=== PATIENT | female | born 1940 | race Hispanic/Latino ===

== ENCOUNTER 2018-03-07 10:22 | Emergency (ER) | payer MEDICARE, BC ==
[2018-03-07 10:22] VITALS: BMI 156.3
[2018-03-07 11:40] LABS: BASO % 0.6 % (0.0-2.0); EOS # 0.3 K/uL (0.0-0.7); EOS % 3.9 % (0.0-4.0); HEMOGLOBIN 11.9 g/dL (11.0-16.0); LYMPH # 1.9 K/uL (1.0-4.3); LYMPH % 29.3 % (20.0-40.0); MEAN CELL VOLUME 89.8 fL (81.0-99.0); MEAN CORPUSCULAR HEMOGLOBIN 31.3 pg (27.0-31.0); MEAN CORPUSCULAR HGB CONC 34.9 g/dL (33.0-37.0); MEAN PLATELET VOLUME 6.2 fL (7.2-11.7); MONO # 0.5 K/uL (0.0-0.8); MONO % 8.3 % (0.0-10.0); NEUT # 3.8 K/uL (1.8-7.0); NEUT % 57.9 % (50.0-75.0); RBC 3.81 Mil/uL (3.80-5.20); RED CELL DISTRIBUTION WIDTH 13.8 % (11.5-14.5); WHITE BLOOD COUNT 6.5 K/uL (4.8-10.8)
[2018-03-07 11:47] LABS: SQUAMOUS EPITHIAL 4 /hpf (0-5); URINE BACTERIA FEW (<OCC); URINE BILIRUBIN NEGATIVE (NEGATIVE); URINE BLOOD 2+ (NEGATIVE); URINE CLARITY Hazy (Clear); URINE COLOR Yellow (YELLOW); URINE GLUCOSE (UA) NORMAL (Normal); URINE LEUKOCYTE ESTERASE 3+ Leu/uL (Negative); URINE PROTEIN NEGATIVE (NEGATIVE); URINE UROBILINOGEN NORMAL mg/dL (0.2-1.0)
[2018-03-07 12:01] LABS: ALB/GLOB RATIO 1.1 (1.0-2.1); ALBUMIN 3.7 g/dL (3.5-5.0); ALT/SGPT 20 U/L (9-52); AST/SGOT 25 U/L (14-36); BLOOD UREA NITROGEN 13 mg/dL (7-17); CALCIUM 8.2 mg/dl (8.6-10.4); GFR AFRICAN-AMERICAN > 60; GFR NON-AFRICAN AMERICAN > 60
[2018-03-07 12:14] LABS: B-TYPE NATRIURETIC PEPTIDE 99.9 pg/mL (0-900)
[2018-03-07 12:37] VITALS: RESP 18; O2SAT 98
--- NOTE | 2018-03-07 12:44 | C.PDOC ---
History Of Present Illness [id number] female complaints of bilateral lower extremity swelling that began 1 week ago. Denies chest pain, SOB, any trauma, or injury. Patient states she has Hx of spina bifida. Patient states she normally catheterizes herself and is currently requesting full catheterization as well. Patient states she completed course of biaxin for sinusitis and feels it contributed to the leg swelling. Time Seen by Provider: 03/07/18 10:36 Chief Complaint (Nursing): Lower Extremity Problem/Injury History Per: Patient History/Exam Limitations: no limitations Onset/Duration Of Symptoms: Hrs Current Symptoms Are (Timing): Still Present Recent travel outside of the [place]: No Past Medical History Reviewed: Historical Data, Nursing Documentation, Vital Signs Vital Signs: Last Vital Signs Temp 98.7 F 03/07/18 12:36 Pulse 62 03/07/18 12:36 Resp 18 03/07/18 12:36 BP 161/74 H 03/07/18 12:36 Pulse Ox 98 03/07/18 13:40 - Medical History PMH: Back Problems (born w/spina bifida), HTN, Chronic Kidney Disease - [facility] Procedures INSERT INDWELLING CATH (05/06/14) Family History: States: Unknown Family Hx - Social History Hx Tobacco Use: No Hx Alcohol Use: No Hx Substance Use: No - Immunization History Hx Tetanus Toxoid Vaccination: No Hx Influenza Vaccination: No Hx Pneumococcal Vaccination: No Review Of Systems Except As Marked, All Systems Reviewed And Found Negative. Musculoskeletal: Positive for: Other (Leg swelling) Physical Exam - Physical Exam Appears: Well, Non-toxic, No Acute Distress Skin: Normal Color, Warm, Dry Head: Atraumatic, Normacephalic Eye(s): bilateral: Normal Inspection, PERRL, EOMI Nose: Normal Oral Mucosa: Moist Neck: Supple Chest: Symmetrical, No Tenderness Respiratory: Normal Breath Sounds, No Decreased Breath Sounds, No Rales, No Rhonchi, No Wheezing Gastrointestinal/Abdominal: Soft, No Tenderness Extremity: Normal ROM, Other (Trace lower extremity edema bilaterally; no infections or proses ) Neurological/Psych: Oriented x3, Normal Speech, Normal Cognition ED Course And Treatment - Laboratory Results Result Diagrams: 03/07/18 11:36 03/07/18 11:36 O2 Sat by Pulse Oximetry: 98 (RA) Pulse Ox Interpretation: Normal - Other Rad CXR X-Ray: Viewed By Me, Read By Radiologist Interpretation: Chest x-ray single frontal view. History: Shortness of breath. Comparison: None available. Findings: Hyperinflation suggestive for COPD and or emphysematous changes. Mild venous congestion. No gross focal infiltrate or effusion. Degenerative changes in the spine. Impression: Hyperinflation suggestive for COPD and or emphysematous changes. Mild venous congestion. No gross focal infiltrate or effusion. Medical Decision Making Medical Decision Making: Ordered EKG, blood work, urinalysis, CXR, and Venous Duplex Scan of lower extremity bilaterally. Impression: - Peripheral edema EKG: - Normal sinus rhythm at 75bpm - RBBB - Non specific ST or T wave changes Results: - Lower extremities normal for DVT. Urine - Contaminated secondary to self catheterization Pulmonary Reading of CXR - Shows no active disease Discussed results with patient and told her to follow up with doctor. - Patient requested for full catheter to be left in place Disposition Counseled Patient/Family Regarding: Studies Performed, Diagnosis, Need For Followup, Rx Given - Disposition Referrals: Reji Ellis MD [Staff Provider] - Disposition: HOME/ ROUTINE Disposition Time: 13:25 Condition: STABLE Additional Instructions: follow up with your doctor in 2 days call to make an appointment elevate legs continue medications at home return to ER if symptoms worsens or progress Instructions: Dependent Edema (DC) Forms: General Discharge Instructions, [facility] ([place]) - Clinical Impression Clinical Impression: Peripheral edema - Scribe Statement The provider has reviewed the documentation as recorded by the Scribtsering Naqvi All medical record entries made by the Scribe were at my direction and personally dictated by me. I have reviewed the chart and agree that the record accurately reflects my personal performance of the history, physical exam, medical decision making, and the department course for this patient. I have also personally directed, reviewed, and agree with the discharge instructions and disposition.
--- NOTE | 2018-03-07 13:28 | RAD ---
Chest x-ray single frontal view History: Shortness of breath. Comparison: None available. Findings: Hyperinflation suggestive for COPD and or emphysematous changes. Mild venous congestion. No gross focal infiltrate or effusion. Degenerative changes in the spine. Impression: Hyperinflation suggestive for COPD and or emphysematous changes. Mild venous congestion. No gross focal infiltrate or effusion.
[2018-03-07 15:17] VITALS: BP 161/70; PULSE 74; TEMP 98.1
--- NOTE | 2018-03-09 09:15 | VASCLAB ---
PROCEDURE: Lower Extremity Venous Duplex Exam. HISTORY: leg swelling B/L LE Edema/Pain, Hx of left BKA PRIORS: None. TECHNIQUE: Bilateral common femoral, femoral, popliteal and posterior tibial, peroneal and great saphenous veins were evaluated. Flow was assessed with color Doppler, compressibility, assessment of phasic flow and augmentation response. Report prepared by Mello Arredondo, T FINDINGS: RIGHT: 1. Common Femoral Vein: 1.1. Compressibility - Fully compressible: Thrombus - None : Flow - Phasic: Augmentation -Normal: Reflux - . 2. Femoral Vein: 2.1. Compressibility - Fully compressible: Thrombus - None : Flow - Phasic: Augmentation -Normal: Reflux - . 3. Popliteal Vein: 3.1. Compressibility - Fully compressible: Thrombus - None : Flow - Phasic: Augmentation -Normal: Reflux - . 4. Posterior Tibial Vein: 4.1. Compressibility - Fully compressible: Thrombus - None: Flow - : Augmentation -: Reflux - . 5. Peroneal Vein: 5.1. Compressibility - Fully compressible: Thrombus - None: Flow - : Augmentation -: Reflux - . 6. Great Saphenous Vein: 6.1. Compressibility - Fully compressible: Thrombus - None: Flow - Phasic: Augmentation - : Reflux - . LEFT: 1. Common Femoral Vein: 1.1. Compressibility - Fully compressible: Thrombus - None: Flow - Phasic: Augmentation -Normal: Reflux - . 2. Femoral Vein: 2.1. Compressibility - Fully compressible: Thrombus - None: Flow - Phasic: Augmentation -Normal: Reflux - . 3. Popliteal Vein: Great Saphenous Vein: 3.1. Compressibility - Fully compressible: Thrombus - None : Flow - Phasic: Augmentation -Normal: Reflux - . 3.2. BKA 4. Compressibility - Fully compressible: Thrombus - None: Flow - Phasic: Augmentation - : Reflux - . OTHER FINDINGS: Right: None significant. Left: None significant. IMPRESSION: Right: No evidence of deep or superficial vein thrombosis of the right lower extremity. Left: No evidence of deep or superficial vein thrombosis of the left lower extremity.
== END 2018-03-07 14:50 | disposition home or self-care (01) ==
LOC: C.ER 10:22
DX: R60.0 Localized edema (principal)

== ENCOUNTER 2018-03-08 16:08 | Emergency (ER) | payer MEDICARE, BC ==
[2018-03-08 16:09] VITALS: BMI 156.3
[2018-03-08 16:23] VITALS: RESP 20
--- NOTE | 2018-03-08 16:45 | C.PDOC ---
History Of Present Illness 77 year old female with a history of spina bifida presents to the emergency department with complaints of Hutchinson catheter dysfunction. Patient was last seen in the ED here yesterday where she had an indwelling Hutchinson catheter placed. Patient states that her self-catheters had filled normally overnight, and that she changed them this morning. Patient states that while she was standing up out of the chair she noticed a lot of liquid and leakage. Patient denies pain or bleeding. She states that since the leakage, her self-catheters have not filled. Time Seen by Provider: 03/08/18 16:14 History Per: Patient History/Exam Limitations: no limitations Onset/Duration Of Symptoms: Hrs Current Symptoms Are (Timing): Still Present Associated Symptoms: Urinary Symptoms Past Medical History Reviewed: Historical Data, Nursing Documentation, Vital Signs Vital Signs: Last Vital Signs Temp 98.9 F 03/08/18 16:21 Pulse 91 H 03/08/18 16:21 Resp 20 03/08/18 16:21 BP 179/85 H 03/08/18 16:21 Pulse Ox 97 03/08/18 17:09 - Medical History PMH: Back Problems (born w/spina bifida), HTN, Chronic Kidney Disease - [employer] Procedures INSERT INDWELLING CATH (05/06/14) - Social History Hx Tobacco Use: No Hx Alcohol Use: No Hx Substance Use: No - Immunization History Hx Tetanus Toxoid Vaccination: No Hx Influenza Vaccination: No Hx Pneumococcal Vaccination: No Review Of Systems Except As Marked, All Systems Reviewed And Found Negative. Genitourinary: Positive for: Other (leakage of hutchinson catheter). Negative for: Vaginal Bleeding, Pelvic Pain Physical Exam - Physical Exam Appears: Non-toxic, No Acute Distress Skin: Normal Color, Warm, Dry Eye(s): bilateral: Normal Inspection Cardiovascular: Rhythm Regular Respiratory: Normal Breath Sounds Gastrointestinal/Abdominal: Normal Exam, Soft, No Tenderness Extremity: Other (lower extremity atrophy consistent with spina bifida) ED Course And Treatment O2 Sat by Pulse Oximetry: 97 (RA) Pulse Ox Interpretation: Normal Progress Note: Plan: Hutchinson Catheter Discontinue. Urinary Straight Catheterization Reevaluation Time: 17:08 Reassessment Condition: Improved (HUTCHINSON REMOVED PER PT REQUEST) Disposition Counseled Patient/Family Regarding: Diagnosis, Need For Followup - Disposition Referrals: YOUR,PMD [Other] Disposition: HOME/ ROUTINE Disposition Time: 17:08 Condition: IMPROVED Instructions: Urinary Retention (DC) - Clinical Impression Clinical Impression: Malfunction of Hutchinson catheter, H/O urinary retention - Scribe Statement The provider has reviewed the documentation as recorded by the Scribe (Hernan Young) Provider Attestation: All medical record entries made by the Scribe were at my direction and personally dictated by me. I have reviewed the chart and agree that the record accurately reflects my personal performance of the history, physical exam, medical decision making, and the department course for this patient. I have also personally directed, reviewed, and agree with the discharge instructions and disposition.
[2018-03-08 18:30] VITALS: BP 156/72; PULSE 81; TEMP 98.7; O2SAT 98
== END 2018-03-08 18:40 | disposition home or self-care (01) ==
LOC: C.ER 16:08
DX: T83.011A Breakdown (mechanical) of indwelling urethral catheter, initial encounter (principal); Y84.8 Other medical procedures as the cause of abnormal reaction of the patient, or of later complication, without mention of misadventure at the time of the procedure; Q05.9 Spina bifida, unspecified; I12.9 Hypertensive chronic kidney disease with stage 1 through stage 4 chronic kidney disease, or unspecified chronic kidney disease; N18.9 Chronic kidney disease, unspecified